=== PATIENT | female | born 1995 | race Caucasian/White ===

== ENCOUNTER 2025-07-20 10:23 | Emergency (ER) | payer BC ==
[~2025-07-20] VITALS: Ht 162.6 cm; Wt 68.2 kg
[2025-07-20 10:27] VITALS: TEMP 98.9
[2025-07-20] MEDS: MORPHINE SULFATE 2 MG/ML SYRINGE IVP ONE (11:01)
[2025-07-20] MEDS ORDERED: ACET-3385 PO (12:29)
[2025-07-20] MEDS ORDERED: IBUP-1492 PO (12:29)
[2025-07-20 12:30] VITALS: BP 120/81; PULSE 80; RESP 18; O2SAT 100
== END 2025-07-20 12:52 | disposition home or self-care (01) ==
LOC: EMS 10:39
DX: S43.004A Unspecified dislocation of right shoulder joint, initial encounter (principal); V00.138A Other skateboard accident, initial encounter; Y93.89 Activity, other specified; Y92.89 Other specified places as the place of occurrence of the external cause; Y99.8 Other external cause status
CPT/HCPCS: 99284; 23650; 96374; 73030; J2270